=== PATIENT | female | born 1940 | race Caucasian/White ===

== ENCOUNTER 2024-09-04 18:00 | Inpatient (IN) ==
[2024-09-04 18:28] LABS: Basophils # (auto) 0.02 K/uL (0.00-0.20); Basophils % (auto) 0.2 %; Eosinophils # (auto) 0.16 K/uL (0.00-0.50); Eosinophils % (auto) 1.6 %; Hematocrit (blood only) 42.6 % (37.0-47.0); Hemoglobin 14.3 g/dl (12.0-16.0); Immature Granulocytes # (auto) 0.07 K/uL (0.01-0.20); Immature Granulocytes % (auto) 0.7 %; Lymphocytes # (auto) 1.48 K/uL (1.20-3.40); Lymphocytes % (auto) 14.7 %; Mean Corpuscular Hemoglobin 31.6 pg (25.0-34.0); Mean Corpuscular Hgb Conc 33.6 g/dL (32.0-36.0); Mean Platelet Volume 9.9 fL (9.4-12.4); Monocytes # (auto) 0.87 K/uL (0.11-0.59); Monocytes % (auto) 8.6 %; Neutrophils # (auto) 7.46 K/uL (1.40-6.50); Neutrophils % (auto) 74.2 %; Platelet Count 185 K/uL (130-400); RDW Coefficient of Variation 13.7 % (11.5-14.5); RDW Standard Deviation 46.6 fL (36.4-46.3); Red Blood Count 4.53 M/uL (4.20-5.40); White Blood Count 10.06 K/ul (4.8-10.8)
[2024-09-04 18:45] LABS: Alanine Aminotransferase < 3 U/L (7-52); Albumin Globulin Ratio 1.6 (0.9-2); Albumin Level 4.5 gm/dl (3.4-5.0); Alkaline Phosphatase 96 U/L (34-104); Anion Gap 8 (3-11); Aspartate Aminotransferase 14 U/L (13-39); BUN Creatinine Ratio 30.1 (10-20); Bilirubin,Total 0.7 mg/dl (0.2-1.0); Blood Urea Nitrogen 31 mg/dl (6-23); Calcium 9.7 mg/dl (8.6-10.3); Carbon Dioxide 29 mmol/L (21-32); Chloride 101 mmol/L (98-107); Globulin 2.9 gm/dl (2.5-4.0); Glucose 218 mg/dl (70-99(Fasting)); Potassium 4.2 mmol/L (3.5-5.1); Sodium 138 mmol/L (136-145); Total Protein 7.4 gm/dl (6.0-8.3)
[2024-09-04 18:52] LABS: Troponin I High Sensitivity 4.8 pg/ml (0-14)
[2024-09-04 18:55] LABS: Partial Thromboplastin Time 26 Seconds (21-31); Prothrombin Time 10.9 Seconds (9.0-12.0)
[2024-09-04] MEDS: OPTIRAY 320 125ml IV ONE (19:16)
--- NOTE | 2024-09-04 19:33 | CT Scan Report ---
Clinical history: Elevated d-dimer Technique: Axial computed tomography images were obtained of the chest after the administration of intravenous contrast according to the CT angiogram protocol Findings: There are multiple segmental and subsegmental emboli involving the bilateral upper lobes, right middle lobe, and bilateral lower lobes. There is a calcified granuloma in the left upper lobe. There is an adjacent 5 mm noncalcified nodular opacity. There is mild bilateral lower lobe atelectasis There is no pleural effusion or pneumothorax. There is no sign of pulmonary fibrosis or other diffuse interstitial process. No endobronchial lesion is seen There is no mediastinal, hilar, or axillary adenopathy. The thoracic aorta appears unremarkable with no sign of aneurysm or dissection. There is no pericardial effusion. The right ventricle appears slightly dilated There is a 1.4 cm nodule in the right thyroid lobe The visualized upper abdomen appears unremarkable. There is thoracic scoliosis and degenerative disc disease. No fracture is seen. No focal osseous lesion is evident Impression: 1. Multifocal peripheral pulmonary embolism bilaterally, overall moderate in amount 2. Possible associated right heart strain, with mild dilatation of the right ventricle 3. Small left upper lobe nodule, likely benign but indeterminate in nature. A follow-up chest CT could be obtained in 6 months to ensure stability 4. Indeterminate thyroid nodule. A follow-up thyroid ultrasound could be obtained ACT 112: Positive. There are findings on this exam that require communication between the performing entity and the patient following Patient Test Result Information Act ([place] ACT 112) guidelines. Electronically signed by Noah Vail 09-04-2024 7:33 PM
--- NOTE | 2024-09-04 19:37 | Emergency Department Note ---
Impression & Plan Pulmonary embolism Admission ED Provider Note HPI: History obtained from patient. The patient is a 84-year-old female with history of Parkinson disease, type 2 diabetes, hypertension, who presents the emergency department with a chief complaint of shortness of breath. Patient states this has been ongoing for the past several weeks. Patient states that her physical therapist noted that she was more short of breath than usual yesterday during a session. Patient followed up with her PCP today and a D-dimer test was ordered to evaluate for possible PE. D-dimer test was elevated and therefore the patient was contacted and told to come to the emergency room for further evaluation. On arrival here to the ED the patient is moderately hypertensive but otherwise hemodynamically stable, she is saturating well on room air on my initial evaluation. Patient denies any chest pain, she states she does feel some baseline shortness of breath even at rest. ROS: - Per HPI Differential Diagnosis: Acute CHF exacerbation with dyspnea, pneumonia, pulmonary embolism, pleural effusion, COPD exacerbation, ACS, amongst other potential pathologies. *Outpatient medications and allergy history reviewed. PE: General: Alert HEENT: Normocephalic, trachea midline Eyes: Extraocular eye movement is intact, no scleral erythema Pulmonary: Clear to auscultation bilaterally, no wheezing Cardio: Regular rate and rhythm GI: Abdomen is soft to palpation : No suprapubic tenderness MSK: No evidence of trauma or malformation of the extremities, no edema Skin: No evidence of rash Neuro: Alert, no focal deficits Psychiatric: Cooperative INDEPENDENT INTERPRETATIONS: traffic monitor specialist: (As interpreted by myself): - An order was placed for continuous cardiac monitoring - Patient was noted to be in sinus rhythm with a rate of 95 EKG: (As interpreted by myself): Rate: 88 Rhythm: Normal sinus rhythm Intervals: Within normal limits ST changes: No ST elevation Time: 1810 Interventions provided in ED: - IV heparin drip Medical Decision Making: IV was established and lab work obtained, patient was placed on traffic monitor specialist. Lab work shows no leukocytosis, hemoglobin is normal, platelet count is normal, CMP does not show any evidence of any critical findings, troponin is negative x 1. EKG per my interpretation shows normal sinus rhythm without acute ischemic changes. Given the patient's elevated D-dimer as an outpatient with dyspnea, CT angiography of the chest was obtained that shows evidence of multifocal bilateral peripheral PE. There is also evidence of possible right heart strain radiologically. Patient was placed on a heparin drip, she remained stable while here in the ED otherwise under my care. I discussed the patient's presentation with the on-call hospitalist, Dr. Martin, the patient was placed for admission in stable condition. Consultants/Discussions held with other healthcare providers: - Hospitalist, Dr. Martin Disposition discussion held by myself with: - Patient Diagnosis: 1. Bilateral pulmonary emboli, acute 2. Dyspnea, acute Disposition: Admission Bran Henning DO Emergency Medicine Past Med/Surg History Problem List (Updated 09/05/24 @ 01:02 by Bran Henning DO) Pulmonary embolism (Acute) Urinary tract infection Back pain Pulmonary emboli Shortness of breath Acid reflux Bilateral sacroiliitis Lumbar radicular pain Impaired ambulation Memory impairment Incontinence (Chronic) Parkinson disease Type 2 diabetes mellitus (Chronic) Osteoporosis (Chronic) On Fosamax in the past. Fosamax restarted 06/2021. Osteoarthritis Dyslipidemia Hypertension Bradykinesia Rigidity (muscles) Resting tremor Gait disturbance Essential tremor Surgical History History of tonsillectomy History of bladder surgery for bladder prolapse Family History Father , age 87 of heart failure Heart disease Mother , age 90 No problems noted. 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 Feels Safe at Home: Yes Childhood Exposure to Second-Hand Smoke: Yes Diet: regular caffeine: Yes Dental Care, Regularly: Yes Physical Activity Frequency: 1-2 Times per Week Physical Activity Frequency Comment: PT x 2 a week Seatbelt Use: always Sunscreen Use: Yes Assistive Devices: Denture - Upper, Denture - Lower and Glasses Allergies Allergies Allergy/AdvReac Type Severity Reaction Status Date / Time No Known Drug Allergies Allergy Verified 08/29/24 13:59 Peanut and Related Legumes Allergy Anaphylaxis Verified 08/29/24 13:59 [Peanut (Legumes)] Home Meds Home Medications Medication Instructions Recorded Confirmed aspirin 81 mg capsule 81 mg PO DAILY 02/21/23 09/04/24 simvastatin 20 mg tablet 20 mg PO QPM 02/21/23 09/04/24 vitamins A,C,Y-titj-jpppyj 4,296 1 cap PO DAILY 02/21/23 09/04/24 mcg-226 mg-90 mg capsule (PreserVision AREDS) fluticasone furoate 200 1 inh inhalation DAILY 08/29/23 09/04/24 mcg/actuation blister powder for inhalation loratadine 10 mg tablet (Claritin) 10 mg PO DAILY 08/29/23 09/04/24 varenicline tartrate 0.03 mg/spray 0.03 mg intranasal BID 10/24/23 09/04/24 metered nasal spray (Tyrvaya) Previous Rx's Medication Instructions Recorded alendronate 70 mg tablet 70 mg PO Q7D #12 tabs 01/08/24 mirabegron 50 mg tablet,extended 50 mg PO DAILY #90 tabs 07/18/24 release 24 hr (Myrbetriq) carbidopa 25 mg-levodopa 100 mg 1.5 tab PO QID 90 days #540 tabs 07/24/24 tablet carbidopa ER 25 mg-levodopa 100 mg 1 tab PO BID #180 tabs 07/24/24 tablet,extended release diclofenac sodium 75 mg 75 mg PO BID PRN pain #60 tabs 08/12/24 tablet,delayed release metformin 500 mg tablet,extended 500 mg PO BID #180 tabs 08/25/24 release 24 hr pantoprazole 40 mg tablet,delayed 40 mg PO DAILY #30 tabs 09/04/24 release Results & Data (ED) Vital Signs Vital Signs - 24 hr 09/04/24 18:03 09/04/24 19:28 09/04/24 19:30 Temperature 36.7 C Temperature Source Skin Pulse Rate 88 87 Pulse Rate [Apical] 85 Pulse Rhythm [Apical] Regular Pulse Strength [Apical] Normal Respiratory Rate 20 21 19 Respiratory Effort / Characteristics Non-Labored Spontaneous Non-Labored Respiratory Depth Normal Normal Respiratory Pattern Regular Regular Blood Pressure 136/82 Blood Pressure [Right Arm] 166/84 H Blood Pressure Mean 100 Blood Pressure Mean [Right Arm] 111 Blood Pressure Position [Right Arm] Lying Pulse Oximetry 95 97 97 Oxygen Delivery Method Room Air Room Air Room Air Sepsis Recent Fever Within 48 Hours No Sepsis New/Unexplained Change in Mental Status N/A Sepsis Action Taken by Nursing No Action Required 09/04/24 19:32 Temperature Temperature Source Pulse Rate 86 Pulse Rate [Apical] Pulse Rhythm [Apical] Pulse Strength [Apical] Respiratory Rate Respiratory Effort / Characteristics Respiratory Depth Respiratory Pattern Blood Pressure Blood Pressure [Right Arm] Blood Pressure Mean Blood Pressure Mean [Right Arm] Blood Pressure Position [Right Arm] Pulse Oximetry Oxygen Delivery Method Sepsis Recent Fever Within 48 Hours Sepsis New/Unexplained Change in Mental Status Sepsis Action Taken by Nursing Laboratory Data 09/04/24 18:15 09/04/24 18:15 Lab Results 09/04/24 Range/Units 18:15 WBC 10.06 (4.8-10.8) K/ul RBC 4.53 (4.20-5.40) M/uL Hgb 14.3 (12.0-16.0) g/dl Hct 42.6 (37.0-47.0) % MCV 94.0 (80.0-100.0) fL MCH 31.6 (25.0-34.0) pg MCHC 33.6 (32.0-36.0) g/dL RDW Std Deviation 46.6 H (36.4-46.3) fL RDW Coeff of Maggie 13.7 (11.5-14.5) % Plt Count 185 (130-400) K/uL MPV 9.9 (9.4-12.4) fL Immature Gran % (Auto) 0.7 % Neut % (Auto) 74.2 % Lymph % (Auto) 14.7 % [place] % (Auto) 8.6 % Eos % (Auto) 1.6 % Baso % (Auto) 0.2 % Neut # (Auto) 7.46 H (1.40-6.50) K/uL Lymph # (Auto) 1.48 (1.20-3.40) K/uL [place] # (Auto) 0.87 H (0.11-0.59) K/uL Eos # (Auto) 0.16 (0.00-0.50) K/uL Baso # (Auto) 0.02 (0.00-0.20) K/uL Immature Gran # (Auto) 0.07 (0.01-0.20) K/uL PT 10.9 (9.0-12.0) Seconds INR 1.0 (0.9-1.1) APTT 26 (21-31) Seconds PTT Ratio 1.0 Sodium 138 (136-145) mmol/L Potassium 4.2 (3.5-5.1) mmol/L Chloride 101 (98-107) mmol/L Carbon Dioxide 29 (21-32) mmol/L Anion Gap 8 (3-11) BUN 31 H (6-23) mg/dl Creatinine 1.03 (0.6-1.2) mg/dl Est Cr Clr Drug Dosing Not Reportable eGFR 54.29 BUN/Creatinine Ratio 30.1 H (10-20) Glucose 218 H (70-99(Fasting)) mg/dl Calcium 9.7 (8.6-10.3) mg/dl Total Bilirubin 0.7 (0.2-1.0) mg/dl AST 14 (13-39) U/L ALT < 3 L (7-52) U/L Alkaline Phosphatase 96 (34-104) U/L Troponin I High Sens 4.8 (0-14) pg/ml Total Protein 7.4 (6.0-8.3) gm/dl Albumin 4.5 (3.4-5.0) gm/dl Globulin 2.9 (2.5-4.0) gm/dl Albumin/Globulin Ratio 1.6 (0.9-2) Administered Medications Heparin Sodium/Dextrose (Heparin 71231 Unit/500 Ml D5w) 25,000 units in 500 mls @ 20 mls/hr IV .Q24H [facility]; Protocol Stop: 10/04/24 19:59 Last Admin: 09/04/24 20:23 Dose: 1,000 units/hr, 20 mls/hr Documented By: WILLI Co-signed By: MALCOLM Discontinued Medications Heparin Sodium (Porcine) (Heparin Sod (Porcine) 1000 Unit/Ml) 4,000 units IV NOW ONE Stop: 09/04/24 19:56 Last Admin: 09/04/24 20:23 Dose: 4,000 units Documented By: WILLI Co-signed By: MALCOLM Heparin Sodium/Dextrose (Heparin Iv Adult Wt-Based Standard W/ Initial Bolus Protocol) 1 each IV NOW STA; Protocol Stop: 09/04/24 19:41 Last Admin: 09/04/24 19:54 Dose: Not Given Documented By: MALCOLM Ioversol (Optiray 320 125ml) 119 ml IV ONCE ONE Stop: 09/04/24 19:17 Last Admin: 09/04/24 19:16 Dose: 119 ml Documented By: CARMEN Imaging Data Radiologist's Impression: Chest CTA 09/04/24 18:14 Clinical history: Elevated d-dimer Technique: Axial computed tomography images were obtained of the chest after the administration of intravenous contrast according to the CT angiogram protocol Findings: There are multiple segmental and subsegmental emboli involving the bilateral upper lobes, right middle lobe, and bilateral lower lobes. There is a calcified granuloma in the left upper lobe. There is an adjacent 5 mm noncalcified nodular opacity. There is mild bilateral lower lobe atelectasis There is no pleural effusion or pneumothorax. There is no sign of pulmonary fibrosis or other diffuse interstitial process. No endobronchial lesion is seen There is no mediastinal, hilar, or axillary adenopathy. The thoracic aorta appears unremarkable with no sign of aneurysm or dissection. There is no pericardial effusion. The right ventricle appears slightly dilated There is a 1.4 cm nodule in the right thyroid lobe The visualized upper abdomen appears unremarkable. There is thoracic scoliosis and degenerative disc disease. No fracture is seen. No focal osseous lesion is evident Impression: 1. Multifocal peripheral pulmonary embolism bilaterally, overall moderate in amount 2. Possible associated right heart strain, with mild dilatation of the right ventricle 3. Small left upper lobe nodule, likely benign but indeterminate in nature. A follow-up chest CT could be obtained in 6 months to ensure stability 4. Indeterminate thyroid nodule. A follow-up thyroid ultrasound could be obtained ACT 112: Positive. There are findings on this exam that require communication between the performing entity and the patient following Patient Test Result Information Act ([place] ACT 112) guidelines. Electronically signed by Noah Vail 09-04-2024 7:33 PM Discharge Plan Visit Data Chief Complaint: Referred by Doctor Stated Complaint: POSSIBLE BLOOD CLOTS, REF BY DOC ED Provider: Brna Henning Discharge Problem: Pulmonary embolism Patient Disposition: Admitted As Inpatient Discharge Instructions Interventions: ED Discharge Assessment Last Done: 09/05/24 00:28
[2024-09-04] MEDS: Heparin IV Adult Wt-Based Standard w/ INITIAL Bolus Protocol IV STA (19:54)
[2024-09-04] MEDS ORDERED: HEPARIN SOD (PORCINE) 1000 UNIT/ML IV ONE (19:55)
--- NOTE | 2024-09-04 19:55 | History & Physical Report ---
Date of Service September 04, 2024 Assessment & Plan (1) Pulmonary emboli: (2) Back pain: (3) Urinary tract infection: (4) Type 2 diabetes mellitus: Plan 84-year-old female PMHx T2DM, PAD, OP, and urinary incontinence presenting for SOB. Found to have elevated D-dimer at outpatient labs (4,410) on day of arrival. Evaluation reveals no leukocytosis, H&H 14.3/42.6; D-dimer 4410, BUN 39, glucose 218, ALT < 3; troponin 4.8; chest CTA multifocal peripheral PE bilaterally, possible associated right heart strain mild dilation of RV, small lung nodule (follow up chest CT in 6 months), and thyroid nodule present; EKG normal sinus with LVH at 88 bpm.; Started on heparin drip in ED. 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 No calf tenderness/size discrepancy. Has been more sedentary over the past few weeks (Multifactorial- PD vs low back pain vs SOB). - PT/INR 10.9/1.0; D-dimer 4,410 - EKG NSR with LVH - CTA multifocal peripheral PE bilaterally, possible associated R heart strain mild dilation of RV, small lung nodule (follow up chest CT in 6 months), thyroid nodule present (? thyroid US) - Echo (R pressure) - Heparin drip initiated - continue #Back pain/UTI Back pain ongoing x ~ 2 months, scheduled to have MRI in 2 weeks, recently received SI joint injections ~ 1.5 weeks ago without improvement of symptoms. Does participate in PT. Has been more sedentary over past "few weeks." Suspect multifactorial but UA does reveal presence of bacteria and in setting of back pain with blood in urine, CTAP pending. No history of prior urine cx, so no known history of pseudomonas. Is having increased frequency from baseline and some incontinence. Wears depends normally for incontinence, on mirabegron. - CBC w/o leukocytosis; Cr 1.03 - Chest CTA reveals thoracic scoliosis and DDD but no acute findings - UA w/ blood, nitrite, WBC/RBC/bacteria- pending cx - CTAP from 06/2024 with bilateral renal cysts, mild urinary bladder wall thicke barbra and partial distention - CTAP pending for am - Lidocaine patch prn, ice prn - Ceftriaxone 2g IV started #T2DM H/o DMT2, on metformin at home. - Most recent A1C 08/2024 @ 8.5% - Received IV contrast so metformin to be held -- SSI added - SSI with target BSG range 110-140mg/dL, CF 40, carb ratio 15 - BSG ACHS - Adjust regimen as needed Discussed CT chest nodule findings with patient and family- repeat CT chest recommended Recent TSH WNL, consider thyroid US as appropriate #Parkinson Disease- Follows with neurology, does participate in PT.; Carbidopa- Levodopa - continue #OP- Previously on alendronate, on hold currently by PCP #GERD- Pantoprazole - continue #HLD- Simvastatin - continue Dispo: Admit, PCU VTE Prophylaxis: Heparin This document was dictated utilizing Vertishear. Please excuse any grammatical errors that may be secondary to use of this software. History of Present Illness Chief Complaint: Referred by doctor Primary Care Provider: Callie Jimenes MD 84-year-old female PMHx T2DM, PAD, OP, and urinary incontinence presenting for SOB. Patient was at PT felt very short of breath at that time was brought her PCP. Outpatient labs revealed D-dimer 4400 patient was referred in by PCP. Also complaining of some lower back pain (relieved some with ice), 16 pound weight loss since May 2024 (unintentional) and shortness of breath for the past few weeks. States that her SOB has been worsening over the past "few weeks" but cannot put a direct time frame on it. Notes that it is mainly all the time and worsened with exertion. No dizziness, lightheadedness, or syncope. No chest pain or palpitations. Has had increased fatigue since May 2024 and has been more sedentary per family, partially due to the SOB, PD, and back pain. Patient is scheduled to have an MRI in 2 weeks of her upper back. Has had some night sweats (3 episodes) since May as well. Patient has not noticed on the calf pain or tenderness. Does feel that she has been more sedentary though. Overall denying chest pain, palpitations, abdominal pain, N/V/D/C, numbness/tingling, URI symptoms, fever or chills, or LUTS. Patient has never had this happen before. Patient has never smoked but does have secondhand smoke exposure. ED evaluation reveals no leukocytosis, H&H 14.3/42.6; D-dimer 4410, BUN 39, glucose 218, ALT < 3; troponin 4.8; chest CTA multifocal peripheral PE bilaterally, possible associated right heart strain mild dilation of RV, small LDL nodule (fo llow up chest CT in 6 months), and thyroid nodule present; EKG normal sinus with LVH at 88 bpm.; Started on heparin drip in ED. Please see Dr. Martin's attestation for adjustments/additions to treatment plan. Allergies Allergy/AdvReac Type Severity Reaction Status Date / Time No Known Drug Allergies Allergy Verified 08/29/24 13:59 peanut Allergy Anaphylaxis Verified 09/05/24 08:14 Home Medications Medication Instructions Recorded Confirmed Type aspirin 81 mg capsule 81 mg PO DAILY 02/21/23 09/04/24 History simvastatin 20 mg tablet 20 mg PO QPM 02/21/23 09/04/24 History vitamins A,C,D-pvlt-esbkpn 4,296 1 cap PO DAILY 02/21/23 09/04/24 History mcg-226 mg-90 mg capsule (PreserVision AREDS) fluticasone furoate 200 1 inh inhalation DAILY 08/29/23 09/04/24 History mcg/actuation blister powder for inhalation loratadine 10 mg tablet (Claritin) 10 mg PO DAILY 08/29/23 09/04/24 History varenicline tartrate 0.03 mg/spray 0.03 mg intranasal BID 10/24/23 09/04/24 History metered nasal spray (Tyrvaya) alendronate 70 mg tablet 70 mg PO Q7D #12 tabs 01/08/24 09/04/24 Rx mirabegron 50 mg tablet,extended 50 mg PO DAILY #90 tabs 07/18/24 09/04/24 Rx release 24 hr (Myrbetriq) carbidopa 25 mg-levodopa 100 mg 1.5 tab PO QID 90 days #540 tabs 07/24/24 09/04/24 Rx tablet carbidopa ER 25 mg-levodopa 100 mg 1 tab PO BID #180 tabs 07/24/24 09/04/24 Rx tablet,extended release diclofenac sodium 75 mg 75 mg PO BID PRN pain #60 tabs 08/12/24 09/04/24 Rx tablet,delayed release metformin 500 mg tablet,extended 500 mg PO BID #180 tabs 08/25/24 09/04/24 Rx release 24 hr pantoprazole 40 mg tablet,delayed 40 mg PO DAILY #30 tabs 09/04/24 09/04/24 Rx release Past Med/Surg History Problem List (Updated 09/06/24 @ 10:36 by Christiano Garza DO) Lumbar compression fracture Constipation Pulmonary embolism (Acute) Urinary tract infection Back pain Pulmonary emboli Shortness of breath Acid reflux Bilateral sacroiliitis Lumbar radicular pain Impaired ambulation Memory impairment Incontinence (Chronic) Parkinson disease Type 2 diabetes mellitus (Chronic) Osteoporosis (Chronic) On Fosamax in the past. Fosamax restarted 06/2021. Osteoarthritis Dyslipidemia Hypertension Bradykinesia Rigidity (muscles) Resting tremor Gait disturbance Essential tremor Surgical History History of tonsillectomy History of bladder surgery for bladder prolapse Family History Father , age 87 of heart failure Heart disease Mother , age 90 No problems noted. 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 Other Information That Helps Us Care for You: No Feels Safe at Home: Yes Safety Concerns: Feels Safe At This Time Childhood Exposure to Second-Hand Smoke: Yes Diet: regular caffeine: Yes Dental Care, Regularly: Yes Physical Activity Frequency: 1-2 Times per Week Physical Activity Frequency Comment: PT x 2 a week Seatbelt Use: always Sunscreen Use: Yes Assistive Devices: Cane and Walker Review of Systems Review of Systems: All systems reviewed & are unremarkable except as noted in Subjective Physical Exam Physical Exam: General: No acute distress Skin: Warm and dry Head: Normocephalic, atraumatic Eyes: PERRL, conjunctivae clear, sclera non-icteric ENT: External ear and ear canal without swelling; nose atraumatic; good dentition, tongue normal appearance, pharynx normal Neck: Supple, no LAD Cardio: RRR, no M/G/R, S1 and S2 normal Resp: No respiratory distress, Lungs CTA in all lobes bilaterally, no wheezes, rales, or rhonchi Abdomen: Soft, symmetric, nontender; No masses or hepatosplenomegaly; Bowel sounds normoactive MSK: No deformities; pulses palpable and equal; no edema; No calf tenderness or calf size discrepancy. Neuro: Awake, alert; Sensation intact bilaterally; CN grossly intact Psych: Tremor; Quiet voice; Appropriate mood and affect; good judgement and insight. 2 family members present in room at time of visit. Results & Data Results & Data Vital Signs (Past 12 Hours) Vital Signs Temp Pulse Pulse Resp BP BP Pulse Ox 09/04/24 19:32 86 09/04/24 19:30 85 19 166/84 H 97 09/04/24 19:28 87 21 97 09/04/24 18:03 36.7 C 88 20 136/82 95 O2 Del Method 09/04/24 19:32 09/04/24 19:30 Room Air 09/04/24 19:28 Room Air 09/04/24 18:03 Room Air Laboratory Results 09/04/24 18:15 WBC 10.06 RBC 4.53 Hgb 14.3 Hct 42.6 MCV 94.0 MCH 31.6 MCHC 33.6 RDW Std Deviation 46.6 H RDW Coeff of Maggie 13.7 Plt Count 185 MPV 9.9 Immature Gran % (Auto) 0.7 Neut % (Auto) 74.2 Lymph % (Auto) 14.7 Stark % (Auto) 8.6 Eos % (Auto) 1.6 Baso % (Auto) 0.2 Neut # (Auto) 7.46 H Lymph # (Auto) 1.48 Stark # (Auto) 0.87 H Eos # (Auto) 0.16 Baso # (Auto) 0.02 Immature Gran # (Auto) 0.07 PT 10.9 INR 1.0 APTT 26 PTT Ratio 1.0 Sodium 138 Potassium 4.2 Chloride 101 Carbon Dioxide 29 Anion Gap 8 BUN 31 H Creatinine 1.03 Est Cr Clr Drug Dosing Not Reportable eGFR 54.29 BUN/Creatinine Ratio 30.1 H Glucose 218 H Calcium 9.7 Total Bilirubin 0.7 AST 14 ALT < 3 L Alkaline Phosphatase 96 Troponin I High Sens 4.8 Total Protein 7.4 Albumin 4.5 Globulin 2.9 Albumin/Globulin Ratio 1.6 Diagnostic Findings Chest CTA 09/04/24 18:14 Clinical history: Elevated d-dimer Technique: Axial computed tomography images were obtained of the chest after the administration of intravenous contrast according to the CT angiogram protocol Findings: There are multiple segmental and subsegmental emboli involving the bilateral upper lobes, right middle lobe, and bilateral lower lobes. There is a calcified granuloma in the left upper lobe. There is an adjacent 5 mm noncalcified nodular opacity. There is mild bilateral lower lobe atelectasis There is no pleural effusion or pneumothorax. There is no sign of pulmonary fibrosis or other diffuse interstitial process. No endobronchial lesion is seen There is no mediastinal, hilar, or axillary adenopathy. The thoracic aorta appears unremarkable with no sign of aneurysm or dissection. There is no pericardial effusion. The right ventricle appears slightly dilated There is a 1.4 cm nodule in the right thyroid lobe The visualized upper abdomen appears unremarkable. There is thoracic scoliosis and degenerative disc disease. No fracture is seen. No focal osseous lesion is evident Impression: 1. Multifocal peripheral pulmonary embolism bilaterally, overall moderate in amount 2. Possible associated right heart strain, with mild dilatation of the right ventricle 3. Small left upper lobe nodule, likely benign but indeterminate in nature. A follow-up chest CT could be obtained in 6 months to ensure stability 4. Indeterminate thyroid nodule. A follow-up thyroid ultrasound could be obtained ACT 112: Positive. There are findings on this exam that require communication between the performing entity and the patient following Patient Test Result Information Act ([place] ACT 112) guidelines. Electronically signed by Noah Vail 09-04-2024 7:33 PM Medications Administered Heparin drip started ECG Additional Comments: NSR, LVH, prior septal infarct 88 bpm, DE 180, QRS 82, QT/QTc 378/457, PRT 38/-2/4 Code Status & VTE Plan Code Status Full Supervising Physician Co-Signing Physician Notes I personally saw and examined the patient. I independently reviewed the labs, EKG, imaging, problem list, medication list, past medical history and family history. I verified all roth points and agree with Ronn Woods PA-C with the following exceptions and/or additions: 84 year old female presents to the ER due to shortness of breath and outpatient d-dimer 4410. CTA positive for pulmonary embolism O/E HS RRR, no murmurs, Chest CTAB, Abdo SNT A/P Acute PE - IV heparin, given weight loss and new back pain over the last [address] A/P in AM to assess for any large solid malignancy given PE has no exacerbating event other than immobility UTI - possible this is her back pain, would treat with ceftriaxone and follow up urine culture Thyroid nodule - given acute PE will ass with US thyroid this admission PG Care Time/CCT Total # of Minutes Spent Total Time Spent with Patient: Total time spent is greater than 50% in coordination of care (as documented) at patient's floor/unit and/or counseling patient: Coding Level of Care Code 63327 INT INP/OBS CARE 3/75MIN Diagnoses Pulmonary emboli I26.99 Back pain M54.9 Urinary tract infection N39.0 Type 2 diabetes mellitus E11.9
[2024-09-04] MEDS: HEPARIN SOD (PORCINE) 1000 UNIT/ML IV ONE (20:23)
[2024-09-04] MEDS: HEPARIN 25000 UNIT/500 ML D5W 25,000 UNITS/500 ML BAG IV SCH (20:23)
[2024-09-04 23:12] LABS: Appearance Urine Clear (Clear); Bacteria Urine Automated 4+ (None Seen); Bilirubin Urine Negative (Negative); Blood Urine Trace (Negative); Cast Urine Automated 0-2 /lpf (0-2); Color Urine Yellow; Epithelial Cell Urine Auto 0-2 /hpf (0-2); Glucose Urine UA 1+ (Negative); Ketones Urine 1+ (Negative); Leukocyte Esterase Urine Negative (Negative); Nitrite Urine Positive (Negative); Protein Urine Trace (Negative); Specific Gravity Urine > 1.045 (1.000-1.030); Urobilinogen Urine Negative (Negative); pH Urine 5.5 (4.5-7.5)
[2024-09-05] MEDS ORDERED: ACETAMINOPHEN 325 MG TAB PO PRN (00:57)
[2024-09-05] MEDS ORDERED: POLYETHYLENE (MIRALAX) 17 GM PACK PO PRN (00:57)
[2024-09-05] MEDS ORDERED: metFORMIN HCL ER 500 MG TABCR PO SCH (00:57)
[2024-09-05] MEDS ORDERED: ALUMINUM/MAGNESIUM SUSP 30 ML UDC PO PRN (00:57)
[2024-09-05] MEDS ORDERED: DEXTROSE 50% 50 ML SYRINGE IV PRN (01:13)
[2024-09-05] MEDS ORDERED: CARBOHYDRATES FOR HYPOGLYCEMIA PO PRN (01:13)
[2024-09-05] MEDS ORDERED: GLUCAGON FOR INJ 1 MG VIAL SQ PRN (01:13)
[2024-09-05] MEDS ORDERED: PHARMACY GLYCEMIC MGMT CONSULT PRN (01:13)
[2024-09-05] MEDS ORDERED: GLUCOSE 10 TAB/TUBE PO PRN (01:13)
[2024-09-05] MEDS ORDERED: GLUCOSE 40% GEL 15 GM TUBE PO PRN (01:13)
[2024-09-05] MEDS: SIMVASTATIN 20 MG TAB PO SCH (01:22)
[2024-09-05] MEDS: CARBIDOPA/LEVODOPA 25/100MG EXT REL TAB PO SCH (01:22)
[2024-09-05] MEDS: CARBIDOPA/LEVODOPA 25/100MG TAB PO SCH (01:22)
[2024-09-05] MEDS: OPTIRAY 320 100ml IV ONE (08:56)
--- NOTE | 2024-09-05 09:35 | Ultrasound Report ---
THYROID ULTRASOUND CLINICAL HISTORY: thyroid nodule COMPARISON STUDY: CT chest yesterday TECHNIQUE: Sonography of the thyroid gland was performed. FINDINGS: Right thyroid lobe measures 3.3 x 1.3 x 1.3 cm. There are multiple right thyroid lobe nodul es. Largest nodule is a cystic benign-appearing nodule measuring 1.3 cm in greatest dimension. The ot her nodules are subcentimeter and do not have suspicious characteristics. Left thyroid lobe measures 3.8 x 0.8 x 1.2 cm. There are multiple small subcentimeter left thyroid lo be nodules without suspicious characteristics. IMPRESSION: Bilateral thyroid nodules without suspicious characteristics. ACT 112: Negative or not required by law. Electronically signed by: Michel Bland M.D. 09/05/2024 9:34 AM
--- NOTE | 2024-09-05 09:50 | CT Scan Report ---
ABDOMEN AND PELVIS CT WITH IV CONTRAST CT DOSE: 824.66 mGy.cm HISTORY: Acute generalized abdominal pain weight loss, new lower back pain ?malignancy TECHNIQUE: Multiaxial CT images of the abdomen and pelvis were performed following the IV administrat ion of cc of Optiray, A dose lowering technique was utilized adhering to the principles of ALARA. COMPARISON STUDY: CT chest 09/04/2024, CT abdomen and pelvis 07/14/2024 FINDINGS: Bibasilar pulmonary emboli redemonstrated no pneumatosis or pneumoperitoneum. Unremarkable spleen, pancreas and adrenal glands. Distended gallbladder. No CT evidence of acute cholecystitis. Un remarkable liver. Patency of the hepatic and portal veins. Suggestion of bilateral renal sinus cysts. No hydronephrosis. Small focus of air within the nondepend ent bladder may be secondary to instrumentation versus infection. Unremarkable uterus. Atherosclerosi s of the aorta. No lymphadenopathy. No bowel obstruction or bowel wall thickening. There is moderate colonic fecal retention. Several stool filled loops of ileum are also noted. Tiny fat filled umbilica l hernia. Degenerative changes of the spine, pelvis and hips. Acute to subacute appearing superior en dplate compression deformities at L3 and L4 are new from the prior study. There is approximately 20% superior endplate height loss at L4 with 50% height loss at L3. 3 mm retropulsion at L3. IMPRESSION: 1. Acute to subacute appearing superior endplate compression deformities at L3 and L4 as above with 3 mm retropulsion of L3. 2. No significant central canal stenosis. 3. Constipation. No bowel obstruction or bowel wall thickening. 4. Bibasilar pulmonary emboli redemonstrated, better seen on yesterday's CTA of the chest. 5. Additional findings as above. ACT 112: Negative or not required by law. The above report was generated using voice recognition software. It may contain grammatical, syntax o r spelling errors. Electronically signed by: Faraz Zhu M.D. 09/05/2024 9:48 AM
[2024-09-05] MEDS: ASPIRIN 81 MG ECTAB PO SCH (10:03)
[2024-09-05] MEDS: VIBEGRON 75 MG TAB PO SCH (10:04)
[2024-09-05] MEDS: PANTOprazole 40 MG TAB PO SCH (10:04)
[2024-09-05] MEDS: LORATADINE 10 MG TAB PO SCH (10:04)
[2024-09-05] MEDS: FLUTICASONE FUROATE 200MCG 14 PUFFS/INHALER INH SCH (10:04)
[2024-09-05] MEDS: LIDOCAINE 5% 1 PATCH TD SCH (10:04)
[2024-09-05] MEDS: INSULIN ASPART PER UNIT CHARGE SC SCH (10:16)
[2024-09-05] MEDS: LANTUS PER UNIT CHARGE SC SCH (10:17)
[2024-09-05] MEDS: DOCUSATE SODIUM 100 MG CAP PO SCH (11:12)
[2024-09-05] MEDS: POLYETHYLENE (MIRALAX) 17 GM PACK PO SCH (11:12)
[2024-09-05 11:51] LABS: Hematocrit (blood only) 42.8 % (37.0-47.0); Hemoglobin 14.1 g/dl (12.0-16.0); Mean Corpuscular Hgb Conc 32.9 g/dL (32.0-36.0); Mean Corpuscular Volume 94.1 fL (80.0-100.0); Platelet Count 190 K/uL (130-400); RDW Coefficient of Variation 13.5 % (11.5-14.5); RDW Standard Deviation 46.5 fL (36.4-46.3); Red Blood Count 4.55 M/uL (4.20-5.40); White Blood Count 8.82 K/ul (4.8-10.8)
[2024-09-05 12:06] LABS: BUN Creatinine Ratio 24.7 (10-20); Calcium 9.1 mg/dl (8.6-10.3); Creatinine Clr Calc Pharmacy 42.5 ml/min; Potassium 3.9 mmol/L (3.5-5.1)
[2024-09-05 12:11] LABS: ANTI-Xa, UFH(UnfractionatedHep 0.54 IU/ml (0.3-0.7)
[2024-09-05] MEDS: cefTRIAXone SODIUM 2,000 MG/50 ML BAG IV SCH (12:15)
--- NOTE | 2024-09-05 13:03 | Pharmacy Report ---
Pharmacy Glycemic Short Note 2 - Date of Service September 05, 2024 - Glycemic Short BSG Results (Last 24 hours): 09/04/24 09/04/24 09/05/24 18:15 21:06 08:12 Glucose 218 H POC Glucose 235 H 239 H 09/05/24 09/05/24 11:22 11:34 Glucose 197 H POC Glucose 188 H OUTPATIENT ANTIDIABETIC REGIMEN: * metformin ER 500mg PO BID * HbA1c 8.5% (08/20/24) ASSESSMENT: * Miranda is an 84 year old female admitted with a pulmonary emboli/urinary tract infection with a history of type 2 diabetes mellitus. Pharmacy has been consulted to assist with glycemic management while inpatient. * BSG upon admission elevated, no insulin administered, and BSGs still elevated this AM. Will start low dose Lantus daily to help cover. * NovoLog initated at a weight based stress of 1.5, will tighten slightly to a weight based stress of 2. PLAN FOR INPATIENT GLYCEMIC CONTROL: * Hold outpatient oral diabetes medications * Basal insulin * Lantus 10 units SQ daily * Bolus insulin * NovoLog per scale ACHS or Q6hrs while NPO * Goal Range: Low 110 mg/dL - High 140 mg/dL * Correction Factor: 35 mg/dL/unit * Nutritional / Prandial insulin per carb ratio of 1 unit per 12 grams CHO consumed
--- NOTE | 2024-09-05 14:18 | Electrocardiogram Report ---
Test Reason : Blood Pressure : */* mmHG Vent. Rate : 88 BPM Atrial Rate : 88 BPM P-R Int : 180 ms QRS Dur : 82 ms QT Int : 378 ms P-R-T Axes : 38 -2 4 degrees QTcB Int : 457 ms Normal sinus rhythm Minimal voltage criteria for LVH, may be normal variant Abnormal ECG When compared with ECG of 06-May-2022 21:10, Inverted T waves have replaced nonspecific T wave abnormality in Inferior leads T wave amplitude has increased in Lateral leads Confirmed by Onur Brand ([id number]) on 09/05/2024 2:18:24 PM Referred By: Callie Jimenes Confirmed By: Onur Brand
--- NOTE | 2024-09-05 15:00 | XCELERA ---
[id number]
--- NOTE | 2024-09-05 15:59 | Hospitalist Progress Note ---
Date of Service September 05, 2024 Assessment & Plan (1) Pulmonary emboli: (2) Back pain: (3) Urinary tract infection: (4) Type 2 diabetes mellitus: (5) Constipation: Plan 84-year-old female PMHx T2DM, PAD, OP, and urinary incontinence presenting for SOB. Found to have elevated D-dimer at outpatient labs (4,410) on day of arrival. Evaluation reveals no leukocytosis, H&H 14.3/42.6; D-dimer 4410, BUN 39, glucose 218, ALT < 3; troponin 4.8; chest CTA multifocal peripheral PE bilaterally, possible associated right heart strain mild dilation of RV, small lung nodule (follow up chest CT in 6 months), and thyroid nodule present; EKG normal sinus with LVH at 88 bpm.; Started on heparin drip in ED. 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 No calf tenderness/size discrepancy. Has been more sedentary over the past few weeks (Multifactorial- PD vs low back pain vs SOB). CTA w/ multifocal peripheral PE b/l, possible associated R heart strain, mild dilation of RV, small long nodule, thyroid nodule present Thyroid US w/o suspicious nodules, recent TSH WNL CBC/BMP/PT/INR stable, D-Dimer 4410 Echo normal LV and RV function Heparin drip continued, plan to transition to PO Eliquis likely 09/06. #Back pain/UTI Back pain ongoing x ~ 2 months, scheduled to have MRI in 2 weeks, recently received SI joint injections ~ 1.5 weeks ago without improvement of symptoms. Does participate in PT. Has been more sedentary over past "few weeks." Suspect multifactorial but UA does reveal presence of bacteria and in setting of back pain with blood in urine, CTAP pending. No history of prior urine cx, so no known history of pseudomonas. Is having increased frequency from baseline and some incontinence. Wears depends normally for incontinence, on mirabegron. CTAP: acute to subacute appearing superior endplace compression deformities at L3 and L4 w/ 3mm retropulsion of L3. No significant central canal stenosis. Ortho spine consulted, appreciate recommendations. Pain management w/ Tylenol, Lidocaine patch, Tramadol prn for severe pain. UC pending, continue IV Rocephin. PT/OT consulted, appreciate recommendations. #Constipation CTAP: w/ significant constipation Start Miralax and stool softener BID. #T2DM H/o DMT2, on metformin at home. Most recent A1C 08/2024 @ 8.5% Received IV contrast so metformin to be held -- SSI added SSI with target BSG range 110-140mg/dL, CF 40, carb ratio 15 BSG ACHS Adjust regimen as needed Family reports that patient w/ poor appetite, nutrition consulted, appreciate recommendations. #Parkinson Disease- Follows with neurology, does participate in PT.; Carbidopa- Levodopa - continue #OP- Previously on alendronate, on hold currently by PCP #GERD- Pantoprazole - continue #HLD- Simvastatin - continue Full Code VTE Prophylaxis: Heparin Updated daughter at bedside 09/05. Admission and Anticipated Discharge Date Admission Date: September 04, 2024 Subjective Patient seen and examined this morning. Patient daughter at bedside. Patient reports she is still experiencing shortness of breath but reports that at rest she feels okay. She does have issues with constipation outpatient but reports she has issues walking to the toilet so she does not take anything for her bowels. She continues with low back pain, reports tramadol was working when re-evaluated this afternoon. She is looking forward to her orthospine consult. Physical Exam Constitutional: WD/WN, vitals as above Eyes: PERRL, conjunctivae normal, anicteric sclerae ENMT: external ear and nose normal, oropharynx normal Respiratory: normal respiratory effort, lungs clear to auscultation Cardiovascular: RRR, no murmur, no edema Gastrointestinal (Abdomen): normal bowel sounds, soft, nontender, no hepatosplenomegaly Neurologic: PERRL, EOMI, accommodation nl, no face palsy, no dysarthria Psychiatric: A+Ox3, euthymic affect Results & Data Results & Data Vital Signs (Past 12 Hours) Vital Signs Temp Pulse Pulse Resp BP Pulse Ox O2 Del Method 09/05/24 15:35 91 H 09/05/24 13:11 Room Air 09/05/24 11:00 36.7 C 87 20 139/69 92 Room Air 09/05/24 07:53 36.8 C 76 18 152/82 H 95 Room Air 09/05/24 07:49 76 PG Care Time/CCT Total # of Minutes Spent Total Time Spent with Patient: Total time spent is greater than 50% in coordination of care (as documented) at patient's floor/unit and/or counseling patient: Coding Level of Care Code 65437 SUB INP/OBS CARE 50MIN Diagnoses Pulmonary emboli I26.99 Back pain M54.9 Urinary tract infection N39.0 Type 2 diabetes mellitus E11.9 Constipation K59.00
[2024-09-06 06:31] LABS: Hematocrit (blood only) 41.8 % (37.0-47.0); Hemoglobin 13.7 g/dl (12.0-16.0); Mean Corpuscular Hemoglobin 31.4 pg (25.0-34.0); Mean Corpuscular Hgb Conc 32.8 g/dL (32.0-36.0); Mean Corpuscular Volume 95.9 fL (80.0-100.0); Platelet Count 193 K/uL (130-400); RDW Coefficient of Variation 13.7 % (11.5-14.5); RDW Standard Deviation 48.3 fL (36.4-46.3); Red Blood Count 4.36 M/uL (4.20-5.40); White Blood Count 7.42 K/ul (4.8-10.8)
[2024-09-06] MEDS: traMADol HCL 50 MG TABLET PO PRN (06:44)
[2024-09-06 06:56] LABS: Calcium 8.9 mg/dl (8.6-10.3); Creatinine Clr Calc Pharmacy 38.1 ml/min; Potassium 4.3 mmol/L (3.5-5.1)
[2024-09-06] MEDS: LANTUS PER UNIT CHARGE SC SCH (08:30)
--- NOTE | 2024-09-06 10:37 | Orthopedic Consultation ---
Date of Consultation September 06, 2024 Assessment & Plan (1) Lumbar compression fracture: Assessment compression fractures L3 and L4. Plan at this time would like to obtain an MRI lumbar spine for further anatomic detail of neural structures as well as acuity of the bone fractures. Will order an LSO brace and initiate physical therapy. Make further recommendations upon follow-up. History of Present Illness Reason for Consultation: Back pain Attending Physician: Aundrea Alcantara MD History of Present Illness Patient admitted with multimedical issues including pulmonary emboli. She has had a history of chronic back pain worsening over the past several weeks. Denies any specific trauma fall or event. Denies any specific numbness tingling or weakness in the lower extremities. She has been in bed essentially since admission. She has been currently worked up for her back pain by pain management. Allergies Allergy/AdvReac Type Severity Reaction Status Date / Time No Known Drug Allergies Allergy Verified 08/29/24 13:59 peanut Allergy Anaphylaxis Verified 09/05/24 08:14 Home Medications Medication Instructions Recorded Confirmed Type aspirin 81 mg capsule 81 mg PO DAILY 02/21/23 09/04/24 History simvastatin 20 mg tablet 20 mg PO QPM 02/21/23 09/04/24 History vitamins A,C,O-rnge-nrmvsu 4,296 1 cap PO DAILY 02/21/23 09/04/24 History mcg-226 mg-90 mg capsule (PreserVision AREDS) fluticasone furoate 200 1 inh inhalation DAILY 08/29/23 09/04/24 History mcg/actuation blister powder for inhalation loratadine 10 mg tablet (Claritin) 10 mg PO DAILY 08/29/23 09/04/24 History varenicline tartrate 0.03 mg/spray 0.03 mg intranasal BID 10/24/23 09/04/24 History metered nasal spray (Tyrvaya) alendronate 70 mg tablet 70 mg PO Q7D #12 tabs 01/08/24 09/04/24 Rx mirabegron 50 mg tablet,extended 50 mg PO DAILY #90 tabs 07/18/24 09/04/24 Rx release 24 hr (Myrbetriq) carbidopa 25 mg-levodopa 100 mg 1.5 tab PO QID 90 days #540 tabs 07/24/24 0 09/04/24 Rx tablet carbidopa ER 25 mg-levodopa 100 mg 1 tab PO BID #180 tabs 07/24/24 09/04/24 Rx tablet,extended release diclofenac sodium 75 mg 75 mg PO BID PRN pain #60 tabs 08/12/24 09/04/24 Rx tablet,delayed release metformin 500 mg tablet,extended 500 mg PO BID #180 tabs 08/25/24 09/04/24 Rx release 24 hr pantoprazole 40 mg tablet,delayed 40 mg PO DAILY #30 tabs 09/04/24 09/04/24 Rx release Patient History Surgical History History of tonsillectomy History of bladder surgery for bladder prolapse Family History Father , age 87 of heart failure Heart disease Mother , age 90 No problems noted. 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 Her friend is at the bedside. She has reasonable strength testing lower extremities. Sensory is intact. Results & Data Vital Signs (Past 12 Hours) Vital Signs Temp Pulse Pulse Resp BP Pulse Ox O2 Del Method 09/06/24 10:02 77 09/06/24 09:57 Room Air 09/06/24 07:28 36.6 C 74 18 115/67 95 Room Air 09/06/24 03:06 36.7 C 80 16 110/75 94 Room Air 09/05/24 23:14 36.5 C 87 20 107/63 94 Room Air
--- NOTE | 2024-09-06 13:41 | Magnetic Resonance Report ---
Clinical History: Lower back pain and difficulty walking Technique: Sagittal and axial T1 and T2-weighted magnetic resonance images were obtained of the lumbar spine without gadolinium contrast. Comparison is made to the radiographs dated 08/01/2024 Findings: Scoliosis is again seen. No listhesis is noted. There are mild degenerative endplate changes throughout the lumbar spine. There are acute compression fractures of the L3 and L4 vertebral bodies with loss of up to 50% and 25% of the vertebral body height, respectively. There is associated bone marrow edema. There is no retropulsion of bone into the spinal canal. There is also a mild focal compression fracture of the inferior endplate of the L2 vertebral body, with associated mild bone marrow edema There is no definite sign of infection. There is no sign of acute ligamentous injury. The conus medullaris appears normal, terminating at the level of T12-L1. At L1-L2, there is mild spinal stenosis due to a disc bulge and facet osteoarthritis. There is no compression of the traversing nerve roots. The neural foramen are patent At L2-L3, there is moderate severity spinal stenosis due to a disc bulge that contacts the traversing L3 nerve roots. There is left greater than right neural foramen narrowing that may affect the exiting left L2 nerve root At L3-L4, there is moderate severity spinal stenosis due to a disc bulge, a mild broad-based right paracentral disc protrusion, and facet osteoarthritis. The traversing right L4 nerve root is contacted. There is bilateral neural foramen narrowing that may affect the exiting L3 nerve roots At L4-L5, there is mild spinal stenosis due to a disc bulge and facet osteoarthritis. There is no compression of the traversing nerve roots. There is mild right greater than left neural foramen narrowing At L5-S1, there is a disc bulge and a broad-based central disc protrusion, without spinal stenosis or nerve root compromise. Impression: 1. Acute L3 and L4 compression fractures 2. Minimal acute compression fracture of L2 3. Scoliosis 4. Spinal stenosis at L2-3, which may affect the traversing nerve roots 5. Spinal stenosis at L3-4 with a disc protrusion that contacts the right L4 nerve root 6. Mild spinal stenosis at L1-2 and L4-5, without compression of the traversing nerve roots 7. Left L2-3 and bilateral L3-4 neural foramen narrowing, which may affect the exiting nerve roots. Less severe neural foramen narrowing is seen at L4-5 ACT 112: Positive. There are findings on this exam that require communication between the performing entity and the patient following Patient Test Result Information Act ([place] ACT 112) guidelines. Electronically signed by Noah Vail 09-06-2024 13:41 PM
--- NOTE | 2024-09-06 15:02 | Hospitalist Progress Note ---
Date of Service September 06, 2024 Assessment & Plan (1) Pulmonary emboli: (2) Back pain: (3) Urinary tract infection: (4) Type 2 diabetes mellitus: (5) Constipation: (6) Lumbar compression fracture: Plan 84-year-old female PMHx T2DM, PAD, OP, and urinary incontinence presenting for SOB. Found to have elevated D-dimer at outpatient labs (4,410) on day of arrival. Evaluation reveals no leukocytosis, H&H 14.3/42.6; D-dimer 4410, BUN 39, glucose 218, ALT < 3; troponin 4.8; chest CTA multifocal peripheral PE bilaterally, possible associated right heart strain mild dilation of RV, small lung nodule (follow up chest CT in 6 months), and thyroid nodule present; EKG normal sinus with LVH at 88 bpm.; Started on heparin drip in ED. 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 No calf tenderness/size discrepancy. Has been more sedentary over the past few weeks (Multifactorial- PD vs low back pain vs SOB). CTA w/ multifocal peripheral PE b/l, possible associated R heart strain, mild dilation of RV, small long nodule, thyroid nodule present Thyroid US w/o suspicious nodules, recent TSH WNL CBC/BMP/PT/INR stable, D-Dimer 4410 Echo normal LV and RV function Heparin drip --> transition to Eliquis 10mg BID x 7 days this evening, 09/06. #Back pain Back pain ongoing x ~ 2 months, scheduled to have MRI in 2 weeks, recently received SI joint injections ~ 1.5 weeks ago without improvement of symptoms. Does participate in PT. Has been more sedentary over past "few weeks." CTAP: acute to subacute appearing superior endplace compression deformities at L3 and L4 w/ 3mm retropulsion of L3. No significant central canal stenosis. Ortho spine consulted-> recommended Lumbar MRI, PT/OT, Back brace Lumbar MRI: Acute L3 & L4 compression fractures. minimal acute compression fracture of L2. Scoliosis. Spinal stenosis @ L2-L3, L3-L4. Pain management w/ Tylenol, Lidocaine patch, Tramadol prn for severe pain. PT/OT consulted, appreciate recommendations. #UTI Urinalysis +, UC consistent w/ E. Coli Continue IV Rocephin pending sensitivities. #Constipation CTAP: w/ significant constipation Continue Miralax and stool softener BID. #T2DM H/o DMT2, on metformin at home. Most recent A1C 08/2024 @ 8.5% Received IV contrast so metformin to be held -- SSI added SSI with target BSG range 110-140mg/dL, CF 40, carb ratio 15 BSG ACHS Adjust regimen as needed Nutrition consulted - Boost added. Chronic conditions: Parkinson's: Carbidopa-Levodopa Osteoporosis: Alendronate on hold by PCP GERD: Pantoprazole HLD: Simvastatin Full Code VTE Prophylaxis: Heparin Updated daughter at bedside 09/06. Admission and Anticipated Discharge Date Admission Date: September 04, 2024 Subjective Patient seen and examined this morning. patient reports to be feeling okay today. She reports that the tramadol is effective in controlling her pain. She has moved her bowels minimally. Reports she has a hard time getting to the toilet and is unable to use a bed pain because that worsens her back pain. She reports that her shortness of breath has improved. Physical Exam Constitutional: WD/WN, vitals as above Eyes: PERRL, conjunctivae normal, anicteric sclerae Respiratory: normal respiratory effort, lungs clear to auscultation Cardiovascular: RRR, no murmur, no edema Psychiatric: A+Ox3, euthymic affect Results & Data Results & Data Vital Signs (Past 12 Hours) Vital Signs Temp Pulse Pulse Resp BP Pulse Ox O2 Del Method 09/06/24 10:02 77 09/06/24 09:57 Room Air 09/06/24 07:28 36.6 C 74 18 115/67 95 Room Air 09/06/24 03:06 36.7 C 80 16 110/75 94 Room Air PG Care Time/CCT Total # of Minutes Spent Total Time Spent with Patient: Total time spent is greater than 50% in coordination of care (as documented) at patient's floor/unit and/or counseling patient: Coding Level of Care Code 36667 SUB INP/OBS CARE 3/50MIN Diagnoses Pulmonary emboli I26.99 Back pain M54.9 Urinary tract infection N39.0 Type 2 diabetes mellitus E11.9 Constipation K59.00 Lumbar compression fracture S32.000A
[2024-09-06] MEDS: HEPARIN DRIP- STOP ORDER ONE (19:04)
[2024-09-06] MEDS: APIXABAN 5 MG TABLET PO SCH (19:11)
[2024-09-07 07:43] LABS: Hematocrit (blood only) 42.1 % (37.0-47.0); Hemoglobin 13.9 g/dl (12.0-16.0); Mean Corpuscular Hemoglobin 31.5 pg (25.0-34.0); Mean Corpuscular Volume 95.5 fL (80.0-100.0); Platelet Count 209 K/uL (130-400); RDW Coefficient of Variation 13.9 % (11.5-14.5); RDW Standard Deviation 48.3 fL (36.4-46.3); Red Blood Count 4.41 M/uL (4.20-5.40); White Blood Count 8.36 K/ul (4.8-10.8)
[2024-09-07 08:02] LABS: BUN Creatinine Ratio 28.4 (10-20); Calcium 8.9 mg/dl (8.6-10.3); Creatinine Clr Calc Pharmacy 41.4 ml/min; Potassium 4.3 mmol/L (3.5-5.1)
[2024-09-07] MEDS: CALCITONIN SALMON NA 200 IU/AC 3.7 ML BTL SCH (12:44)
--- NOTE | 2024-09-07 13:49 | Pharmacy Report ---
Pharmacy Glycemic Short Note 2 - Date of Service September 07, 2024 - Glycemic Short BSG Results (Last 24 hours): 09/06/24 09/06/24 09/07/24 16:34 20:11 07:00 Glucose 193 H POC Glucose 256 H 137 H 09/07/24 09/07/24 07:20 11:25 Glucose POC Glucose 238 H 109 H OUTPATIENT ANTIDIABETIC REGIMEN: * metformin ER 500mg PO BID * HbA1c 8.5% (08/20/24) ASSESSMENT: 09/07: * Miranda received 29 units of insulin yesterday (15 were basal) * Fasting BSG continually elevated, will continue with AM Lantus dose and add a scale at bedtime to try and bring down fasting BSG * Corrects easily, will loosen correction factor and tighten carbohydrate ratio to try to prevent BSG swings. Goal range increased to prevent hypoglycemia 09/05: * Miranda is an 84 year old female admitted with a pulmonary emboli/urinary tract infection with a history of type 2 diabetes mellitus. Pharmacy has been consulted to assist with glycemic management while inpatient. * BSG upon admission elevated, no insulin administered, and BSGs still elevated this AM. Will start low dose Lantus daily to help cover. * NovoLog initated at a weight based stress of 1.5, will tighten slightly to a weight based stress of 2. PLAN FOR INPATIENT GLYCEMIC CONTROL: * Hold outpatient oral diabetes medications * Basal insulin * Lantus 15 units SQ daily * Lantus 0-10 unit SQ HS based on BSG (see eMAR for additional details) * Bolus insulin * NovoLog per scale ACHS or Q6hrs while NPO * Goal Range: Low 110 mg/dL - High 140 mg/dL * Correction Factor: 40 mg/dL/unit * Nutritional / Prandial insulin per carb ratio of 1 unit per 10 grams CHO consumed
--- NOTE | 2024-09-07 14:52 | Hospitalist Progress Note ---
Date of Service September 07, 2024 Assessment & Plan (1) Pulmonary emboli: (2) Back pain: (3) Urinary tract infection: (4) Type 2 diabetes mellitus: (5) Constipation: (6) Lumbar compression fracture: Plan 84-year-old female PMHx T2DM, PAD, OP, and urinary incontinence presenting for SOB. Found to have elevated D-dimer at outpatient labs (4,410) on day of arrival. Evaluation reveals no leukocytosis, H&H 14.3/42.6; D-dimer 4410, BUN 39, glucose 218, ALT < 3; troponin 4.8; chest CTA multifocal peripheral PE bilaterally, possible associated right heart strain mild dilation of RV, small lung nodule (follow up chest CT in 6 months), and thyroid nodule present; EKG normal sinus with LVH at 88 bpm.; Started on heparin drip in ED. 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 No calf tenderness/size discrepancy. Has been more sedentary over the past few weeks (Multifactorial- PD vs low back pain vs SOB). CTA w/ multifocal peripheral PE b/l, possible associated R heart strain, mild dilation of RV, small long nodule, thyroid nodule present Thyroid US w/o suspicious nodules, recent TSH WNL CBC/BMP/PT/INR stable, D-Dimer 4410 Echo normal LV and RV function s/p Heparin drip --> transition to Eliquis 10mg BID x 7 days (through 09/13) #Back pain Back pain ongoing x ~ 2 months, scheduled to have MRI in 2 weeks, recently received SI joint injections ~ 1.5 weeks ago without improvement of symptoms. Does participate in PT. Has been more sedentary over past "few weeks." CTAP: acute to subacute appearing superior endplace compression deformities at L3 and L4 w/ 3mm retropulsion of L3. No significant central canal stenosis. Ortho spine consulted-> recommended Lumbar MRI, PT/OT, Back brace Lumbar MRI: Acute L3 & L4 compression fractures. minimal acute compression fr acture of L2. Scoliosis. Spinal stenosis @ L2-L3, L3-L4. Pain management w/ Tylenol, Lidocaine patch, Tramadol prn for severe pain. Calcitonin spray added 09/07. PT/OT consulted, appreciate recommendations. #UTI Urinalysis +, UC consistent w/ E. Coli s/p 3 doses IV Rocephin, patient was asymptomatic #Constipation CTAP: w/ significant constipation Continue Miralax and stool softener BID. #T2DM H/o DMT2, on metformin at home. Most recent A1C 08/2024 @ 8.5% Received IV contrast so metformin to be held -- SSI added SSI with target BSG range 110-140mg/dL, CF 40, carb ratio 15 BSG ACHS Adjust regimen as needed Nutrition consulted - Boost added. Chronic conditions: Parkinson's: Carbidopa-Levodopa Osteoporosis: Alendronate on hold by PCP GERD: Pantoprazole HLD: Simvastatin Full Code VTE Prophylaxis: Eliquis Updated daughter at bedside 09/07. Admission and Anticipated Discharge Date Admission Date: September 04, 2024 Subjective Patient seen and examined this morning, daughter at bedside. She reports she is feeling okay today. Reports SOB continues to improve daily. She reports her back pain is tolerable w/ pain medication Physical Exam Constitutional: WD/WN, vitals as above Eyes: PERRL, conjunctivae normal, anicteric sclerae Respiratory: normal respiratory effort, lungs clear to auscultation Cardiovascular: RRR, no murmur, no edema Psychiatric: A+Ox3, euthymic affect Results & Data Results & Data Vital Signs (Past 12 Hours) Vital Signs Temp Pulse Resp BP BP Pulse Ox O2 Del Method 09/07/24 11:08 Room Air 09/07/24 10:38 36.8 C 100 H 18 132/81 94 Room Air 09/07/24 08:09 36.5 C 87 16 149/83 H 95 Room Air 09/07/24 03:12 36.8 C 87 14 128/77 93 Room Air PG Care Time/CCT Total # of Minutes Spent Total Time Spent with Patient: Total time spent is greater than 50% in coordination of care (as documented) at patient's floor/unit and/or counseling patient: Coding Level of Care Code 26605 SUB INP/OBS CARE 3/50MIN Diagnoses Pulmonary emboli I26.99 Back pain M54.9 Urinary tract infection N39.0 Type 2 diabetes mellitus E11.9 Constipation K59.00 Lumbar compression fracture S32.000A
[2024-09-07] MEDS: LANTUS PER UNIT CHARGE SC SCH (21:08)
--- NOTE | 2024-09-08 08:56 | Pharmacy Report ---
Pharmacy Glycemic Short Note 2 - Date of Service September 08, 2024 - Glycemic Short BSG Results (Last 24 hours): 09/07/24 09/07/24 09/07/24 11:25 16:29 20:50 POC Glucose 109 H 192 H 158 H 09/08/24 07:34 POC Glucose 145 H OUTPATIENT ANTIDIABETIC REGIMEN: * Metformin ER 500 mg PO BID * HbA1c 8.5% (08/20/24) ASSESSMENT: 09/08: * Miranda received 33 units of insulin yesterday, 20 of which were basal. BSGs were: 232-461-975-158 mg/dL. * Fasting BSG this AM was 145 mg/dL. This has dropped nearly 100 points from yesterday so will reduce basal by ~20% today. * Novolog was loosened yesterday at lunchtime. Will continue with this regimen for now. Tolerating T2DM diet. 09/07: * Miranda received 29 units of insulin yesterday (15 were basal) * Fasting BSG continually elevated, will continue with AM Lantus dose and add a scale at bedtime to try and bring down fasting BSG * Corrects easily, will loosen correction factor and tighten carbohydrate ratio to try to prevent BSG swings. Goal range increased to prevent hypoglycemia 09/05: * Miranda is an 84 year old female admitted with a pulmonary emboli/urinary tract infection with a history of type 2 diabetes mellitus. Pharmacy has been consulted to assist with glycemic management while inpatient. * BSG upon admission elevated, no insulin administered, and BSGs still elevated this AM. Will start low dose Lantus daily to help cover. * NovoLog initated at a weight based stress of 1.5, will tighten slightly to a weight based stress of 2. PLAN FOR INPATIENT GLYCEMIC CONTROL: * Hold outpatient oral diabetes medications * Basal insulin * Lantus 15 units SC daily * Bolus insulin * NovoLog per scale ACHS or Q6hrs while NPO * Goal Range: Low 110 mg/dL - High 140 mg/dL * Correction Factor: 40 mg/dL/unit * Nutritional / Prandial insulin per carb ratio of 1 unit per 10 grams CHO consumed
--- NOTE | 2024-09-08 09:57 | Orthopedic Progress Note ---
Date of Service September 08, 2024 Assessment & Plan (1) Lumbar compression fracture: Plan: At this time we are awaiting LSO brace to be fit. Once this is complete we will initiate physical therapy. She may ultimately benefit from a stay at rehab. The brace would only be necessary when out of bed. Admission and Anticipated Discharge Date Admission Date: September 04, 2024 Subjective Patient continues to complain of back pain and generalized weakness. Physical Exam Physical Exam: Patient is currently in the chair at the bedside. She is neurologically intact. Results & Data Vital Signs (Past 12 Hours) Vital Signs Temp Pulse Resp BP Pulse Ox O2 Del Method 09/08/24 07:41 36.7 C 84 16 120/78 95 Room Air
--- NOTE | 2024-09-08 13:15 | Hospitalist Progress Note ---
Date of Service September 08, 2024 Assessment & Plan (1) Pulmonary emboli: (2) Back pain: (3) Urinary tract infection: (4) Type 2 diabetes mellitus: Plan 84-year-old female PMHx T2DM, PAD, OP, and urinary incontinence presenting for SOB. Found to have elevated D-dimer at outpatient labs (4,410), Initial evaluation showed chest CTA multifocal peripheral PE bilaterally, possible associated right heart strain mild dilation of RV, small lung nodule (follow up chest CT in 6 months), and thyroid nodule present. Echo showed normal LV and RV function Initially started on heparin drip and the converted to Eliquis 10mg BID on 09/06, will transition to 5mg BID PM of 09/13. #Pulmonary Emboli + outpatient dimer after continued SOB. Possible provoked with decreased activity Continue Eliquis, transition to 5mg BID on PM 09/13 stable on room air #Back pain Back pain ongoing x ~ 2 months, recently received SI joint injections ~ 1.5 weeks ago without improvement of symptoms. CTAP: acute to subacute appearing superior endplace compression deformities at L3 and L4 w/ 3mm retropulsion of L3. No significant central canal stenosis. Lumbar MRI: Acute L3 & L4 compression fractures. minimal acute compression fracture of L2. Scoliosis. Spi nal stenosis @ L2-L3, L3-L4. Ortho spine consulted-> recommended LSO brace out of bed, PT/OT/reab Pain control: prn Tylenol, Lidocaine patch, Tramadol prn for severe pain. Calcitonin spray added 09/07. PT/OT - rec rehab, CM following #UTI Urinalysis +, UC consistent w/ E. Coli s/p 3 doses IV Rocephin, patient was asymptomatic #Constipation CTAP: w/ significant constipation Continue Miralax and stool softener BID. #T2DM Home regimen: Metformin - HELD A1C 08/2024 @ 8.5% SSI with target BSG range 110-140mg/dL, CF 40, carb ratio 15 BSG acceptable #Thyroid nodule - seen on chest CT. TSH WNL. thyroid US without suspicious nodules. #lung nodule- need follow up CT in 6 months #Parkinson Disease- Follows with neurology, continue Carbidopa-Levodopa #OP- Previously on alendronate, on hold currently by PCP #GERD- Pantoprazole - continue #HLD- Simvastatin - continue Dispo: continued inpatient stay, awaiting LSO brace and rehab DVT ppx: Drake Daughter updated at bedside 09/08 Admission and Anticipated Discharge Date Admission Date: September 04, 2024 Subjective Patient seen sitting up in the chair, daughter at bedside assisting with lunch patient report chronic back pain but controlled, brace has not been delivered yet asking to shower no acute concerns, aware the plan is for rehab Review of Systems Review of Systems: All systems reviewed & are unremarkable except as noted in Subjective Physical Exam Physical Exam: General: NAD, vitals as above, sitting up in the chair Pulm: breathing unlabored CV: well perfused extremities: moves all extremities Results & Data Results & Data Vital Signs (Past 12 Hours) Vital Signs Temp Pulse Resp BP Pulse Ox O2 Del Method 09/08/24 08:45 Room Air 09/08/24 07:41 98.1 F 84 16 120/78 95 Room Air Laboratory Results POC glucose reviewed PG Care Time/CCT Total # of Minutes Spent Total Time Spent with Patient: Total time spent is greater than 50% in coordination of care (as documented) at patient's floor/unit and/or counseling patient: Coding Level of Care Code 86004 SUB INP/OBS CARE 2/35MIN Diagnoses Pulmonary emboli I26.99 Back pain M54.9 Urinary tract infection N39.0 Type 2 diabetes mellitus E11.9
--- NOTE | 2024-09-09 13:43 | Hospitalist Progress Note ---
Date of Service September 09, 2024 Assessment & Plan (1) Pulmonary emboli: (2) Back pain: (3) Urinary tract infection: (4) Type 2 diabetes mellitus: Plan 84-year-old female PMHx T2DM, PAD, osteoporosis, Parkinson's disease, GERD, HLD, and urinary incontinence presenting for SOB. Found to have elevated D-dimer at outpatient labs (4,410), Initial evaluation showed chest CTA multifocal peripheral PE bilaterally, possible associated right heart strain with mild dilation of RV, small lung nodule (follow up chest CT in 6 months), and thyroid nodule present. Echo showed normal LV and RV function. Initially started on heparin drip and the converted to Eliquis 10mg BID on 09/06, will transition to 5mg BID PM of 09/13. #Pulmonary Emboli + outpatient dimer after continued SOB. Possible provoked with decreased activity; no evidence of malignancy seen otherwise on CT chest/abdomen/pelvis Continue Eliquis, transition to 5mg BID on PM 09/13 stable on room air #Back pain/lumbar compression fractures Back pain ongoing x ~ 2 months, recently received SI joint injections ~ 1.5 weeks ago without improvement of symptoms. CTAP: acute to subacute appearing superior endplate compression deformities at L3 and L4 w/ 3mm retropulsion of L3. No significant central canal stenosis. Lumbar MRI: Acute L3 & L4 compression fractures. minimal acute compression fracture of L2. Scoliosis. Spinal stenosis @ L2-L3, L3-L4. Ortho spine consulted-> recommended LSO brace out of bed, PT/OT/reab Pain control: prn Tylenol, Lidocaine patch, Tramadol prn for severe pain. Calcitonin spray added 09/07. PT/OT - rec rehab, CM following #UTI Urinalysis +, UC consistent w/ E. Coli s/p 3 doses IV Rocephin, patient was asymptomatic #Constipation CTAP: w/ significant constipation Continue Miralax and stool softener BID. #T2DM Home regimen: Metformin - HELD A1C 08/2024 @ 8.5% pharmacy glycemic consult-using basal and bolus insulin BSG acceptable #Thyroid nodule - seen on chest CT. TSH WNL. thyroid US without suspicious nodules. - Follow-up as an outpatient #lung nodule-seen on chest CT - Need follow up CT in 6 months #Parkinson Disease- Follows with neurology, no acute issues - continue Carbidopa-Levodopa # Osteoporosis- Previously on alendronate, on hold currently by PCP - Started calcitonin nasal spray #GERD- Pantoprazole - continue #HLD- Simvastatin - continue aspirin Dispo: continued inpatient stay, awaiting rehab DVT ppx: Drake Daughter updated at bedside 09/08 & 09/09 Admission and Anticipated Discharge Date Admission Date: September 04, 2024 Supervising Physician Co-Signing Physician Notes PA Supervision Note: I did not personally see or examine the patient today, but I verified all roth points of ALFREDO Wesley's assessment and plan with the following exceptions/additions: None Subjective patient seen sitting up in the chair, daughter present at bedside. LSO brace is in place. Patient reports that her pain does seem to be improving. She is frustrated that she is unable to go to rehab today. Moving her bowels, good appetite. feels that her shortness of breath is much better compared to when she came in.No acute concerns Review of Systems Review of Systems: All systems reviewed & are unremarkable except as noted in Subjective Physical Exam Physical Exam: General: NAD, VS as above, sitting up to the chair Resp: normal respiratory effort, lungs clear to auscultation CV: RRR, no murmur, Abd: normal bowel sounds, non tender, no hepatosplenomegaly back: LSO brace in place Extremities: Moves all extremities, no edema Neuro: A&O x3, Results & Data Results & Data Vital Signs (Past 12 Hours) Vital Signs Temp Pulse Resp BP Pulse Ox O2 Del Method 09/09/24 07:36 97.9 F 83 16 120/75 95 Room Air Laboratory Results [id number] blood glucose was reviewed PG Care Time/CCT Total # of Minutes Spent Total Time Spent with Patient: Total time spent is greater than 50% in coordination of care (as documented) at patient's floor/unit and/or counseling patient: Coding Level of Care Code 44597 SUB INP/OBS CARE 06/14MIN Diagnoses Pulmonary emboli I26.99 Back pain M54.9 Urinary tract infection N39.0 Type 2 diabetes mellitus E11.9
[2024-09-09 15:17] VITALS: TEMP 98.1
[2024-09-10 07:46] VITALS: BP 130/76; PULSE 77; RESP 16; O2SAT 97
--- NOTE | 2024-09-10 08:13 | Discharge Summary ---
Discharge Summary Date of Service September 10, 2024 Principal Dx & Hospital Course #1 = Principal Diagnosis (1) Pulmonary emboli: (2) Back pain: (3) Urinary tract infection: (4) Type 2 diabetes mellitus: Plan #Pulmonary Emboli 84-year-old female PMHx T2DM, PAD, osteoporosis, Parkinson's disease, GERD, HLD, and urinary incontinence presenting for SOB. Found to have elevated D-dimer at outpatient labs (4,410), Initial evaluation showed chest CTA multifocal peripheral PE bilaterally, possible associated right heart strain with mild dilation of RV, small lung nodule (follow up chest CT in 6 months), and thyroid nodule present. Echo showed normal LV and RV function. Initially started on heparin drip and the converted to Eliquis 10mg BID on 09/06, will transition to 5mg BID PM of 09/13. No clearly provoked, possibly from decreased activity. No malignancy seen on CT chest/ A/P - consider life long anticoagulation. remain stable on room air #Back pain/lumbar compression fractures Back pain ongoing x ~ 2 months, recently received SI joint injections ~ 1.5 weeks ago without improvement of symptoms. CTAP: acute to subacute appearing superior endplate compression deformities at L3 and L4 w/ 3mm retropulsion of L3. No significant central canal stenosis. Lumbar MRI: Acute L3 & L4 compression fractures. minimal acute compression fracture of L2. Scoliosis. Spinal stenosis @ L2-L3, L3-L4. Seen by Dr. Garza, ortho spine - who recommended recommended LSO brace out of bed, PT/OT/rehab. She was accepted at [facility]. Pain control with : prn Tylenol, Lidocaine patch, Tramadol prn for severe pain. #UTI - UC: E. Coli, s/p 3 doses IV Rocephin, patient was asymptomatic #Constipation - CTAP: w/ significant constipation. Continue daily miralax and colace while on narcotics #T2DM - Resume home Metformin #Thyroid nodule - seen on chest CT. TSH WNL. thyroid US without suspicious nodules. Follow-up outpatient #lung nodule- need follow up CT in 6 months #Parkinson Disease- continue Carbidopa-Levodopa #GERD- continue Pantoprazole #HLD- Simvastatin - continue aspirin Dispo: discharge to [facility] today Notes For Next Care Provider thyroid nodule (negative US) and chest CT (6 month) follow up needed Medication Changes From Visit eliquis added diclofenac stopped tramadol prn for pain Admission HPI Per Admitting Provider 84-year-old female PMHx T2DM, PAD, OP, and urinary incontinence presenting for SOB. Patient was at PT felt very short of breath at that time was brought her PCP. Outpatient labs revealed D-dimer 4400 patient was referred in by PCP. Also complaining of some lower back pain (relieved some with ice), 16 pound weight loss since May 2024 (unintentional) and shortness of breath for the past few weeks. States that her SOB has been worsening over the past "few weeks" but cannot put a direct time frame on it. Notes that it is mainly all the time and worsened with exertion. No dizziness, lightheadedness, or syncope. No chest pain or palpitations. Has had increased fatigue since May 2024 and has been more sedentary per family, partially due to the SOB, PD, and back pain. Patient is scheduled to have an MRI in 2 weeks of her upper back. Has had some night sweats (3 episodes) since May as well. Patient has not noticed on the calf pain or tenderness. Does feel that she has been more sedentary though. Overall denying chest pain, palpitations, abdominal pain, N/V/D/C, numbness/tingling, URI symptoms, fever or chills, or LUTS. Patient has never had this happen before. Patient has never smoked but does have secondhand smoke exposure. ED evaluation reveals no leukocytosis, H&H 14.3/42.6; D-dimer 4410, BUN 39, glucose 218, ALT < 3; troponin 4.8; chest CTA multifocal peripheral PE bilaterally, possible associated right heart strain mild dilation of RV, small LDL nodule (follow up chest CT in 6 months), and thyroid nodule present; EKG normal sinus with LVH at 88 bpm.; Started on heparin drip in ED. Please see Dr. Martin's attestation for adjustments/additions to treatment plan. Discharge Exam General: NAD, VS as above, sitting up to the chair Resp: normal respiratory effort, lungs clear to auscultation CV: RRR, no murmur, back: LSO brace in place Extremities: Moves all extremities, Neuro: A&O x3, Discharge Plan Discharge Items Patient Disposition: Transfer [facility] Fac Reason For Visit: PE Discharge Diagnosis: PE, compression fractures Activity: As commented below Activity Comment: work with therapy to get stronger Weightbearing: Full weightbearing Non-emergency contact: Primary Care Provider Call non-emergency contact if: you have any medication questions, your symptoms worsen, your pain is not controlled and your temperature is above 101 Follow-up/Referrals: Callie Jimenes MD [Primary Care Provider] - 09/16/24 1:00 pm Christiano Garza, [Surgeon] - (follow up for compression fractures ) Diet: Carb Consistent or DM2 Addtl Attending Provider Instructions: Ms. Dietrich, You were hospitalized after having weeks of shortness of breath - this was found to be a pulmonary embolism (blood clot in your lung). For this you were started on Eliquis, this should be taken for at least 3-6 months but may be life long as there is no clear cause as to why you got a blood clot. There are instructions about taken Eliquis below. You were started on 10mg twice a day dosing for 7 days. On 09/13 the evening dose, you will transition to the 5mg twice a day dose. You were also found to have compression fractures in your back. This was treated with calcitonin nasal spray. And you were given a brace to wear out of bed. Continue tylenol, lidocaine patch and tramadol as needed for pain. You will need to follow up with Dr. Garza for this, his information is above. Would maintain miralax daily, especially while on narcotics to prevent further constipation. There was concerned for a thyroid nodule, but the ultrasound looked okay. Your PCP should follow up on this with you. There was a nodule seen in your lungs on CT scan, outpatient CT scan is recommended in 6 months. ------- Here are some guidelines about taking Eliquis: Increased risk of blood clots if you stop taking Eliquis. Do not stop taking E liquis without talking to your doctor.. Stopping Eliquis increases your risk of having a stroke. Increased risk of bleeding. Eliquis can cause bleeding which can be serious and may lead to . This is because Eliquis is a blood thinner medicine (anticoagulant) that lowers blood clotting. During treatment with Eliquis you are likely to bruise more easily, and it may take longer for bleeding to stop. * If you ever cannot get bleeding to stop please report to the ER * If you have a bruise that is large/painful or swollen you should also be seen by a medical provider Call your doctor or get medical help right away if you or your child develop any of these signs or symptoms of bleeding: unexpected bleeding or bleeding that lasts a long time, such as: * nose bleeds that happen often * unusual bleeding from the gums * bleeding that is severe or you cannot control * red, pink or brown urine * bright red or black stools (looks like tar) * cough up blood or blood clots * vomit blood or your vomit looks like coffee grounds If you have a fall and hit your head, please come to the ER and get checked out. Being on a blood thinner increases your risk of brain bleeding with falls. Avoid high risk activities, such as: * standing on tall ladders * riding motorcycles * anything where you are high risk for falls or trauma Avoid taking NSAIDs (pain medication) while you are taking a blood thinner. This includes: * Ibuprofen, Aleve Advil, Naproxen. * If you are ever unsure you can ask your doctor or pharmacist. * Tylenol is SAFE to take. If you have any new or worsening chest pain or shortness of breath please return to the ER. Pending Studies at Discharge: No Stand-Alone Forms: My [facility] Skilled Items Patient informed of condition?: Yes DNR: No Discharge Level of Care: Skilled Communicable Disease: No Discharge Prognosis: Stable Lines: None Urinary Catheter: No Medications and DC Order Prescriptions: New tramadol 50 mg Tablet 25 mg PO Q6H PRN (Reason: pain) Qty: 12 0RF Eliquis 5 mg Tablet 10 mg PO BID Qty: 6 0RF Eliquis 5 mg Tablet 5 mg PO BID Qty: 30 0RF polyethylene glycol 3350 [Miralax] 17 gram Powder In Packet 17 g PO DAILY Qty: 30 0RF lidocaine 5 % Adhesive Patch,Medicated 1 patch transdermal QAM Qty: 30 0RF docusate sodium 100 mg Capsule 100 mg PO DAILY Qty: 30 0RF Continued metformin 500 mg tablet extended release 24 hr 500 mg PO BID Qty: 180 3RF simvastatin 20 mg tablet 20 mg PO QPM PreserVision AREDS 4,296 mcg-226 mg-90 mg capsule 1 cap PO DAILY aspirin 81 mg capsule 81 mg PO DAILY loratadine [Claritin] 10 mg tablet 10 mg PO DAILY fluticasone furoate 200 mcg/actuation blister with device 1 inh inhalation DAILY pantoprazole 40 mg tablet,delayed release (DR/EC) 40 mg PO DAILY Qty: 30 2RF Rx Instructions: NEW ORDER Tyrvaya 0.03 mg/spray spray, metered, non-aerosol 0.03 mg intranasal BID Rx Instructions: administer into each nostril; approximately 12 hours apart mirabegron [Myrbetriq] 50 mg tablet extended release 24 hr 50 mg PO DAILY Qty: 90 3RF carbidopa-levodopa 25-100 mg tablet 1.5 tab PO QID 90 Days Qty: 540 2RF carbidopa-levodopa 25-100 mg tablet extended release 1 tab PO BID Qty: 180 2RF Held alendronate 70 mg tablet 70 mg PO Q7D Qty: 12 3RF Hold Instructions: Acid Reflux Discontinued diclofenac sodium 75 mg tablet,delayed release (DR/EC) 75 mg PO BID PRN (Reason: pain) Qty: 60 0RF Discharge Orders: Discharge Order (Routine); Ordered 09/10/24 Ordered By: Romina Wesley Admission Data Admit Date/Time: 09/04/24 20:22 Attending Provider: Shahana Padgett Admit Provider: Felipe Martin Primary Care Provider: Callie Jimenes Other Providers: Felipe Martin; Christiano Garza; [place] Other Interventions: Discharge Summary Assessment (RN) Last Done: 09/10/24 09:31 Hospital Stay Data Consultations 09/04/24 19:45 ED Decision to Admit Stat 09/05/24 10:16 Consult Orthopedic Spine Surgery Routine Diagnostic Imagining Performed Chest CTA 09/04/24 18:14 Clinical history: Elevated d-dimer Technique: Axial computed tomography images were obtained of the chest after the administration of intravenous contrast according to the CT angiogram protocol Findings: There are multiple segmental and subsegmental emboli involving the bilateral upper lobes, right middle lobe, and bilateral lower lobes. There is a calcified granuloma in the left upper lobe. There is an adjacent 5 mm noncalcified nodular opacity. There is mild bilateral lower lobe atelectasis There is no pleural effusion or pneumothorax. There is no sign of pulmonary fibrosis or other diffuse interstitial process. No endobronchial lesion is seen There is no mediastinal, hilar, or axillary adenopathy. The thoracic aorta appears unremarkable with no sign of aneurysm or dissection. There is no pericardial effusion. The right ventricle appears slightly dilated There is a 1.4 cm nodule in the right thyroid lobe The visualized upper abdomen appears unremarkable. There is thoracic scoliosis and degenerative disc disease. No fracture is seen. No focal osseous lesion is evident Impression: 1. Multifocal peripheral pulmonary embolism bilaterally, overall moderate in amount 2. Possible associated right heart strain, with mild dilatation of the right ventricle 3. Small left upper lobe nodule, likely benign but indeterminate in nature. A follow-up chest CT could be obtained in 6 months to ensure stability 4. Indeterminate thyroid nodule. A follow-up thyroid ultrasound could be obtained ACT 112: Positive. There are findings on this exam that require communication between the performing entity and the patient following Patient Test Result Information Act ([place] ACT 112) guidelines. Electronically signed by Noah Vail 09-04-2024 7:33 PM Abdomen/Pelvis CT 09/05/24 07:[address] WITH IV CONTRAST CT DOSE: 824.66 mGy.cm HISTORY: Acute generalized abdominal pain weight loss, new lower back pain ?malignancy TECHNIQUE: Multiaxial CT images of the abdomen and pelvis were performed following the IV administration of cc of Optiray, A dose lowering technique was utilized adhering to the principles of ALARA. COMPARISON STUDY: CT chest 09/04/2024, CT abdomen and pelvis 07/14/2024 FINDINGS: Bibasilar pulmonary emboli redemonstrated no pneumatosis or pneumoperitoneum. Unremarkable spleen, pancreas and adrenal glands. Distended gallbladder. No CT evidence of acute cholecystitis. Unremarkable liver. Patency of the hepatic and portal veins. Suggestion of bilateral renal sinus cysts. No hydronephrosis. Small focus of air within the nondependent bladder may be secondary to instrumentation versus infection. Unremarkable uterus. Atherosclerosis of the aorta. No lymphadenopathy. No bowel obstruction or bowel wall thickening. There is moderate colonic fecal retention. Several stool filled loops of ileum are also noted. Tiny fat filled umbilical hernia. Degenerative changes of the spine, pelvis and hips. Acute to subacute appearing superior endplate compression deformities at L3 and L4 are new from the prior study. There is approximately 20% superior endplate height loss at L4 with 50% height loss at L3. 3 mm retropulsion at L3. IMPRESSION: 1. Acute to subacute appearing superior endplate compression deformities at L3 and L4 as above with 3 mm retropulsion of L3. 2. No significant central canal stenosis. 3. Constipation. No bowel obstruction or bowel wall thickening. 4. Bibasilar pulmonary emboli redemonstrated, better seen on yesterday's CTA of the chest. 5. Additional findings as above. ACT 112: Negative or not required by law. The above report was generated using voice recognition software. It may contain grammatical, syntax or spelling errors. Electronically signed by: Faraz Zhu M.D. 09/05/2024 9:48 AM Thyroid Ultrasound 09/05/24 07:00 THYROID ULTRASOUND CLINICAL HISTORY: thyroid nodule COMPARISON STUDY: CT chest yesterday TECHNIQUE: Sonography of the thyroid gland was performed. FINDINGS: Right thyroid lobe measures 3.3 x 1.3 x 1.3 cm. There are multiple right thyroid lobe nodules. Largest nodule is a cystic benign-appearing nodule measuring 1.3 cm in greatest dimension. The other nodules are subcentimeter and do not have suspicious characteristics. Left thyroid lobe measures 3.8 x 0.8 x 1.2 cm. There are multiple small subcentimeter left thyroid lobe nodules without suspicious characteristics. IMPRESSION: Bilateral thyroid nodules without suspicious characteristics. ACT 112: Negative or not required by law. Electronically signed by: Michel Bland M.D. 09/05/2024 9:34 AM Lumbar Spine MRI 09/06/24 10:37 Clinical History: Lower back pain and difficulty walking Technique: Sagittal and axial T1 and T2-weighted magnetic resonance images were obtained of the lumbar spine without gadolinium contrast. Comparison is made to the radiographs dated 08/01/2024 Findings: Scoliosis is again seen. No listhesis is noted. There are mild degenerative endplate changes throughout the lumbar spine. There are acute compression fractures of the L3 and L4 vertebral bodies with loss of up to 50% and 25% of the vertebral body height, respectively. There is associated bone marrow edema. There is no retropulsion of bone into the spinal canal. There is also a mild focal compression fracture of the inferior endplate of the L2 vertebral body, with associated mild bone marrow edema There is no definite sign of infection. There is no sign of acute ligamentous injury. The conus medullaris appears normal, terminating at the level of T12-L1. At L1-L2, there is mild spinal stenosis due to a disc bulge and facet osteoarthritis. There is no compression of the traversing nerve roots. The neural foramen are patent At L2-L3, there is moderate severity spinal stenosis due to a disc bulge that contacts the traversing L3 nerve roots. There is left greater than right neural foramen narrowing that may affect the exiting left L2 nerve root At L3-L4, there is moderate severity spinal stenosis due to a disc bulge, a mild broad-based right paracentral disc protrusion, and facet osteoarthritis. The traversing right L4 nerve root is contacted. There is bilateral neural foramen narrowing that may affect the exiting L3 nerve roots At L4-L5, there is mild spinal stenosis due to a disc bulge and facet osteoarthritis. There is no compression of the traversing nerve roots. There is mild right greater than left neural foramen narrowing At L5-S1, there is a disc bulge and a broad-based central disc protrusion, without spinal stenosis or nerve root compromise. Impression: 1. Acute L3 and L4 compression fractures 2. Minimal acute compression fracture of L2 3. Scoliosis 4. Spinal stenosis at L2-3, which may affect the traversing nerve roots 5. Spinal stenosis at L3-4 with a disc protrusion that contacts the right L4 nerve root 6. Mild spinal stenosis at L1-2 and L4-5, without compression of the traversing nerve roots 7. Left L2-3 and bilateral L3-4 neural foramen narrowing, which may affect the exiting nerve roots. Less severe neural foramen narrowing is seen at L4-5 ACT 112: Positive. There are findings on this exam that require communication between the performing entity and the patient following Patient Test Result Information Act ([place] ACT 112) guidelines. Electronically signed by Noah Vail 09-06-2024 13:41 PM Pending Results Patient Have Any Pending Studies at Discharge: No Discharge Instructions Given to Patient (Per Discharging Provider) Ms. Dietrich, Jeremiah were hospitalized after having weeks of shortness of breath - this was found to be a pulmonary embolism (blood clot in your lung). For this you were started on Eliquis, this should be taken for at least 3-6 months but may be life long as there is no clear cause as to why you got a blood clot. There are instructions about taken Eliquis below. You were started on 10mg twice a day dosing for 7 days. On 09/13 the evening dose, you will transition to the 5mg twice a day dose. You were also found to have compression fractures in your back. This was treated with calcitonin nasal spray. And you were given a brace to wear out of bed. Continue tylenol, lidocaine patch and tramadol as needed for pain. You will need to follow up with Dr. Garza for this, his information is above. Would maintain miralax daily, especially while on narcotics to prevent further constipation. There was concerned for a thyroid nodule, but the ultrasound looked okay. Your PCP should follow up on this with you. There was a nodule seen in your lungs on CT scan, outpatient CT scan is recom mended in 6 months. ------- Here are some guidelines about taking Eliquis: Increased risk of blood clots if you stop taking Eliquis. Do not stop taking Eliquis without talking to your doctor.. Stopping Eliquis increases your risk of having a stroke. Increased risk of bleeding. Eliquis can cause bleeding which can be serious and may lead to . This is because Eliquis is a blood thinner medicine (anticoagulant) that lowers blood clotting. During treatment with Eliquis you are likely to bruise more easily, and it may take longer for bleeding to stop. * If you ever cannot get bleeding to stop please report to the ER * If you have a bruise that is large/painful or swollen you should also be seen by a medical provider Call your doctor or get medical help right away if you or your child develop any of these signs or symptoms of bleeding: unexpected bleeding or bleeding that lasts a long time, such as: * nose bleeds that happen often * unusual bleeding from the gums * bleeding that is severe or you cannot control * red, pink or brown urine * bright red or black stools (looks like tar) * cough up blood or blood clots * vomit blood or your vomit looks like coffee grounds If you have a fall and hit your head, please come to the ER and get checked out. Being on a blood thinner increases your risk of brain bleeding with falls. Avoid high risk activities, such as: * standing on tall ladders * riding motorcycles * anything where you are high risk for falls or trauma Avoid taking NSAIDs (pain medication) while you are taking a blood thinner. This includes: * Ibuprofen, Aleve Advil, Naproxen. * If you are ever unsure you can ask your doctor or pharmacist. * Tylenol is SAFE to take. If you have any new or worsening chest pain or shortness of breath please return to the ER. Supervising Physician Co-Signing Physician Notes ALFREDO Supervision Note: I did not personally see or examine the patient today, but I verified all roth points of ALFREDO Wesley's assessment and plan with the following exceptions/additions: None Total Time Total Time Spent Total Time Spent (In Minutes): Time spent day of discharge 36 minutes including direct patient care, medication reconciliation, documentation, review of labs and images, and coordination of care. Coding Level of Care Code 73197 INP/OBS DISCH >30 MIN Diagnoses Pulmonary emboli I26.99 Back pain M54.9 Urinary tract infection N39.0 Type 2 diabetes mellitus E11.9
[2024-09-13] MEDS ORDERED: APIXABAN 5 MG TABLET PO SCH (21:00)
== END 2024-09-10 10:37 | DRG 176 ==
LOC: ED 18:00 → 2S 20:22 → SUATTDRO 20:22 → 2S 09-05 00:28 → 3W 09-07 10:30